=== PATIENT | male | born 1945 | race Caucasian/White ===

== ENCOUNTER 2019-03-03 12:17 | Emergency (ER) | payer OTHER, SELFPAY ==
[2019-03-03 12:30] VITALS: BP 156/91; PULSE 65; RESP 18; TEMP 36.4; O2SAT 99; BMI 29.4
--- NOTE | 2019-03-03 15:30 | ED.MALEGU ---
HPI - Male Genitourinary <ACE Finch - Last Filed: 03/04/19 01:33> General Chief complaint: Urogenital-Male Stated complaint: thinks he has a UTI Time Seen by Provider: 03/03/19 13:23 Source: patient Mode of arrival: Ambulatory Limitations: no limitations History of Present Illness HPI Narrative: This is a 74-year-old male, nonsmoker, presents to ED with urinary frequency about every 20 minutes with normal amount. Patient reports urinary flow is start and stopping pattern. Patient reports there is no changing in amount of hydration. Patient denies burning with urination, hematuria. However, patient reports some discomfort when he takes alcohol or caffeine. Patient denies fever, chills, nausea or vomiting and reports normal appetite. Patient had loose stool yesterday which is not too abnormal for him. Patient denies significant testicular pain. He reports pain in left upper and lower quadrant in abdomen with flank pain. Patient had an annual physical with blood test with primary care physician and was told he does not have enlarged prostate or diabetes. Patient's has recent UTI 3 days ago and being treated with antibiotic medication. Patient has history of cholecystectomy in the past. Related Data Home Medications Medication Instructions Recorded Confirmed cholecalciferol (vitamin D3) 2,000 unit PO DAILY 03/03/19 03/03/19 [Vitamin D3] hydrocodone-acetaminophen 1 tab PO Q4-6H PRN 03/03/19 03/03/19 multivitamin 1 tab PO DAILY 03/03/19 03/03/19 omeprazole 20 mg PO DAILY 03/03/19 03/03/19 Allergies Allergy/AdvReac Type Severity Reaction Status Date / Time Iodinated Contrast- Oral and Allergy Verified 03/03/19 12:34 IV Dye Review of Systems <ACE Finch - Last Filed: 03/04/19 01:33> Review of Systems ROS Unobtainable: All systems reviewed & are unremarkable except as noted in HPI and below PFSH <ACE Finch - Last Filed: 03/04/19 01:33> Surgical History History of cholecystectomy (Acute) Social History Smoking Status: Never smoker Social History Smoking Status: Never smoker Exam <ACE Finch - Last Filed: 03/04/19 01:33> Narrative Exam Narrative: GEN: Alert, oriented x 3, well appearing and nourished, and in no acute distress. Head: Normal cephalic, atraumatic. No scalp or temporal tenderness, palpable mass or rash. EYES: Pupils are equal, round, and reactive to light and accommodation. Extraocular muscles are intact bilaterally. There is no subconjunctival hemorrhage, exudate and sclera non-icteric. ENT: Bilateral auditory canals and tympanic membranes clear. Hearing grossly intact. Nose without bleeding, purulent discharge or deviation. Facial sinuses nontender to palpate. Mucous membrane moist, no mucosal lesion. Throat without erythema, tonsillar hypertrophy or exudate. Uvula in midline, airway patent. Neck: Trachea in midline. No JVD, non-tender without lymphadenopathy. No masses or thyroid megaly. Supple, non-tender and no meningeal signs. CARDIAC: Normal regular rate and rhythm without murmurs, gallops, or rubs. No chest wall tenderness. No peripheral edema, cyanosis or pallor. Capillary refill is less than 2 seconds. RESPIRATORY: Lungs are cleat to auscultate bilaterally. No cough, wheezes, rales, or rhonchi. No stridor, respiratory distress, increase work of breathing, or accessary muscle used. ABD: Abdomen soft, nontender and non-distended. No guarding or rebound tenderness to palpate. Bowel sounds are normal in all 4 quadrants. There is no palpable masses or organomegaly. : No redness, swelling, warmth in bilateral scrotum/testes. EXT: Full painless ROM of all extremities with no loss of sensation, strength, effusion or edema. SKIN: Warm, dry, normal color for patient. No erythema, lesions or rash over visible areas. BACK: Nontender without deformity or crepitance. No flank tenderness. NEUROLOGICAL: Alert and oriented to place, time and person. Sensation and motor function intact bilaterally. No facial droops, dysphasia. PSYCHIATRIC: Good judgement and reason, without hallucinations, abnormal affect or abnormal behaviors during the examination. Initial Vital Signs Initial Vital Signs: Vital Signs Temperature 97.6 F 03/03/19 12:30 Pulse Rate 65 03/03/19 12:30 Respiratory Rate 18 03/03/19 12:30 Blood Pressure 156/91 H 03/03/19 12:30 Pulse Oximetry 99 03/03/19 12:30 <Fermín Jones DO - Last Filed: 03/04/19 09:09> Initial Vital Signs Initial Vital Signs: Vital Signs Temperature 97.6 F 03/03/19 12:30 Pulse Rate 65 03/03/19 12:30 Respiratory Rate 18 03/03/19 12:30 Blood Pressure 156/91 H 03/03/19 12:30 Pulse Oximetry 99 03/03/19 12:30 Scores <KATHIA FinchP - Last Filed: 03/04/19 01:33> GCS Snyder coma scale eye opening: Spontaneous Snyder coma scale verbal response: Orientated Snyder coma scale motor response: Obey commands Snyder coma scale total score: 15 Course <KATHIA FinchP - Last Filed: 03/04/19 01:33> Orders Ordered: ED Orders 03/03/19 16:00 Complete Blood Count AUTO DIFF Stat Comprehensive Metabolic Panel Stat Lipase Stat Vital Signs Vital signs: Vital Signs - 8 hr 03/03/19 12:30 Temperature 97.6 F Pulse Rate 65 Respiratory Rate 18 Blood Pressure 156/91 H Pulse Oximetry 99 <Fermín Jones DO - Last Filed: 03/04/19 09:09> Orders Ordered: ED Orders 03/03/19 16:00 Complete Blood Count AUTO DIFF Stat Comprehensive Metabolic Panel Stat Lipase Stat Vital Signs Vital signs: Vital Signs - 8 hr 03/03/19 12:30 Temperature 97.6 F Pulse Rate 65 Respiratory Rate 18 Blood Pressure 156/91 H Pulse Oximetry 99 MDM - Male Genitourinary <Carlos Manuel ZamoraKATHIA MascorroP - Last Filed: 03/04/19 01:33> Differential Diagnosis Differential diagnosis: Likely urinary tract infection, epididymitis, prostatitis and other (Electrolytes imbalance, DM) Medical Records Attestation: I reviewed the patient's medical records. Lab Data Attestation: I reviewed the patient's lab results. Result diagrams: 03/03/19 16:00 03/03/19 16:00 Labs: Lab Results 03/03/19 03/03/19 Range/Units 16:00 16:00 WBC 5.6 (4.5-11.0) X10^3/uL RBC 4.72 (4.5-5.9) X10^6/uL Hgb 15.3 (13.5-17.5) g/dL Hct 44.2 (41-53) % MCV 93.6 (80-100) fL MCH 32.5 (26-34) PG MCHC 34.7 (30-36) % RDW 13.4 (11.6-14.8) % Plt Count 208 (150-400) X10^3/uL Neut % (Auto) 57.9 (50-75) % Lymph % (Auto) 29.9 (25-40) % [place] % (Auto) 8.3 (3-14) % Eos % (Auto) 3.1 (2-4) % Baso % (Auto) 0.8 (0-2) % Neut # (Auto) 3300 (0181-0992) /uL Lymph # (Auto) 1700 (6164-6142) /uL [place] # (Auto) 500 (0-900) /uL Eos # (Auto) 200 (0-450) /uL Baso # (Auto) 0 (0-100) /uL Sodium 141 (137-145) mmol/L Potassium 4.2 (3.4-5.1) mmol/L Chloride 102 (98-107) mmol/L Carbon Dioxide 29 (22-32) mmol/L BUN 15 (9-20) mg/dL Creatinine 0.80 (0.66-1.25) mg/dL Estimated GFR > 60.0 (>60) mL/min BUN/Creatinine Ratio 18.8 (6-22) Glucose 98 (80-110) mg/dL Calcium 10.2 (8.4-10.2) mg/dL Total Bilirubin 0.7 (0.2-1.3) mg/dL AST 28 (17-59) IU/L ALT 21 (21-72) IU/L Alkaline Phosphatase 91 (38-126) U/L Total Protein 7.8 (6.3-8.2) g/dL Albumin 4.6 (3.5-5.0) g/dL Globulin 3.2 (1.7-4.1) g/dL Albumin/Globulin Ratio 1.4 (1.0-2.8) Lipase 42 (23-300) U/L Urine Dip Bedside Urine Glucose Negative Bedside Urine Bilirubin - Negative Bedside Urine Ketone - Negative Urine Specific [place] 1.015 Bedside Urine Occult Blood - Negative Bedside Urine pH 6.0 Bedside Urine Protein - Negative Bedside Urine Urobilinogen - Negative Bedside Urine Nitrite - Negative Bedside Urine Leukocytes - Negative Esterase MDM Narrative Medical decision making narrative: This is a 74-year-old gentlemen who is originally from [place] and visiting a friend in town with his spouse on the way to [place] with chief c/o urinary frequency for 3 days without other urinary symptoms such as dysuria, urgency, hematuria. Patient reports his spouse recently had UTI and being treated with antibiotic medications. Patient denies constitutional symptoms. Patient recently had an annual physical with blood test with normal findings without diabetes, increased PSA level. Patient had colonoscope the last year with diverticulosis without infection. Patient came in to ED to be evaluated for UTI. Today's urine test does not exhibit infection. Initially, patient states is concerned for his symptoms with recent normal annual physical exam and blood test and agrees with blood test and CT KUB. However, patient was dissatisfied with long wait today and refused CT scan but agrees with blood test. CBC without leukocytosis and chemistries and lipase were all unremarkable. Physical exam in abdomen was benign without tenderness to palpate, peritoneal signs. Bowel sounds were present in 4 quadrants and soft. Patient was afebrile with normal tensive w/o tachycardia. These findings were shared with the patient and return precautions were discussed with the patient. Patient advised to follow up with his primary care physician when return to home. Advised to take Tylenol and/or Motrin as needed for discomfort. Patient agrees with treatment plan and no further questions were expressed at this time. <Fermín Jones, DO - Last Filed: 03/04/19 09:09> Lab Data Labs: Lab Results 03/03/19 03/03/19 Range/Units 16:00 16:00 WBC 5.6 (4.5-11.0) X10^3/uL RBC 4.72 (4.5-5.9) X10^6/uL Hgb 15.3 (13.5-17.5) g/dL Hct 44.2 (41-53) % MCV 93.6 (80-100) fL MCH 32.5 (26-34) PG MCHC 34.7 (30-36) % RDW 13.4 (11.6-14.8) % Plt Count 208 (150-400) X10^3/uL Neut % (Auto) 57.9 (50-75) % Lymph % (Auto) 29.9 (25-40) % [place] % (Auto) 8.3 (3-14) % Eos % (Auto) 3.1 (2-4) % Baso % (Auto) 0.8 (0-2) % Neut # (Auto) 3300 (0863-5905) /uL Lymph # (Auto) 1700 (5693-9905) /uL [place] # (Auto) 500 (0-900) /uL Eos # (Auto) 200 (0-450) /uL Baso # (Auto) 0 (0-100) /uL Sodium 141 (137-145) mmol/L Potassium 4.2 (3.4-5.1) mmol/L Chloride 102 (98-107) mmol/L Carbon Dioxide 29 (22-32) mmol/L BUN 15 (9-20) mg/dL Creatinine 0.80 (0.66-1.25) mg/dL Estimated GFR > 60.0 (>60) mL/min BUN/Creatinine Ratio 18.8 (6-22) Glucose 98 (80-110) mg/dL Calcium 10.2 (8.4-10.2) mg/dL Total Bilirubin 0.7 (0.2-1.3) mg/dL AST 28 (17-59) IU/L ALT 21 (21-72) IU/L Alkaline Phosphatase 91 (38-126) U/L Total Protein 7.8 (6.3-8.2) g/dL Albumin 4.6 (3.5-5.0) g/dL Globulin 3.2 (1.7-4.1) g/dL Albumin/Globulin Ratio 1.4 (1.0-2.8) Lipase 42 (23-300) U/L Urine Dip Bedside Urine Glucose Negative Bedside Urine Bilirubin - Negative Bedside Urine Ketone - Negative Urine Specific [place] 1.015 Bedside Urine Occult Blood - Negative Bedside Urine pH 6.0 Bedside Urine Protein - Negative Bedside Urine Urobilinogen - Negative Bedside Urine Nitrite - Negative Bedside Urine Leukocytes - Negative Esterase Discharge Plan Departure Patient Disposition: Home Clinical Impression: Left lower quadrant abdominal pain, Increased urinary frequency Discharge Date/Time: 03/03/19 16:52 Instructions: DI for Abdominal Pain-Adult Activity Restrictions/Additional Instructions: You have been diagnosed with [urinary frequency without signs of infection or blood according to urine test. Your lab test for CBC, chemistry, lipase were unremarkable along her physical exam. You had declined CT scan test for left lower quadrant pain and flank pain.]. What to do: *Take your medications as directed. Please take [id number] Tylenol and or Motrin as needed for discomfort. Motrin can irritate the stomach so take it with food please. *Follow up with your primary care provider/[facility] in 2-3 days, call for an appointment. Let them know you were seen in the ED and that we asked you to be seen in follow up. *Return to ED if you have any new, worsening, or concerning symptoms, such as [chest pain, breathing difficulty, unable to tolerate fluid, blood in your stool or urine, fever, increasing urinary symptoms, or any acute concerns]. Prescriptions: No Action multivitamin Tablet 1 tab PO DAILY RF: 0 hydrocodone-acetaminophen 5-325 mg Tablet 1 tab PO Q4-6H PRN (Reason: pain) RF: 0 omeprazole 20 mg Capsule,Delayed Release(Dr/Ec) 20 mg PO DAILY RF: 0 cholecalciferol (vitamin D3) [Vitamin D3] 2,000 unit Capsule 2,000 unit PO DAILY RF: 0
[2019-03-03 16:11] LABS: Add Manual Diff / Slide Review NO; Basophils Absolute Auto 0 /uL (0-100); Basophils Percent Auto 0.8 % (0-2); Eosinophils Absolute Auto 200 /uL (0-450); Eosinophils Percent Auto 3.1 % (2-4); Hematocrit 44.2 % (41-53); Hemoglobin 15.3 g/dL (13.5-17.5); Lymphocytes Absolute Auto 1700 /uL (1100-4500); Lymphocytes Percent Auto 29.9 % (25-40); Mean Corpuscular HGB Conc 34.7 % (30-36); Mean Corpuscular Hemoglobin 32.5 PG (26-34); Mean Corpuscular Volume 93.6 fL (80-100); Monocytes Absolute Auto 500 /uL (0-900); Monocytes Percent Auto 8.3 % (3-14); Neutrophils Absolute Auto 3300 /uL (1500-7000); Neutrophils Percent Auto 57.9 % (50-75); Platelet Count 208 X10^3/uL (150-400); Red Blood Cell Count 4.72 X10^6/uL (4.5-5.9); Red Cell Distribution Width 13.4 % (11.6-14.8); White Blood Cell Count 5.6 X10^3/uL (4.5-11.0)
[2019-03-03 16:24] LABS: Alanine Aminotransferase 21 IU/L (21-72); Albumin 4.6 g/dL (3.5-5.0); Albumin Globulin Ratio 1.4 (1.0-2.8); Alkaline Phosphatase 91 U/L (38-126); Aspartate Aminotransferase 28 IU/L (17-59); BUN Creatinine Ratio 18.8 (6-22); Bilirubin Total 0.7 mg/dL (0.2-1.3); Blood Urea Nitrogen 15 mg/dL (9-20); Calcium 10.2 mg/dL (8.4-10.2); Carbon Dioxide 29 mmol/L (22-32); Chloride 102 mmol/L (98-107); Estimated Glomerular Filt Rate > 60.0 mL/min (>60); Globulin 3.2 g/dL (1.7-4.1); Glucose 98 mg/dL (80-110); HEMOLYSIS < 15 (0-50); Lipase 42 U/L (23-300); Potassium 4.2 mmol/L (3.4-5.1); Sodium 141 mmol/L (137-145); Total Protein 7.8 g/dL (6.3-8.2)
--- NOTE | 2019-03-03 16:26 | PC.NURSE ---
Preet Horowitz, nursing staff and radiology staff has been talking to patient and updating him on wait, test wait, lab wait etc.
[2019-03-03 16:45] VITALS: BP 150/86; PULSE 56; RESP 18; O2SAT 100
== END 2019-03-03 16:52 | disposition home or self-care (01) ==
PROVIDERS: Emergency Provider Nurse Practitioner Family
DX: R10.32 Left lower quadrant pain (principal); R35.0 Frequency of micturition
CPT/HCPCS: 36415; 80053; 81003; 83690; 85025; 99282; 99283